=== PATIENT | male | born 1950 | race Caucasian/White ===

== ENCOUNTER 2020-05-27 08:39 | Day surgery (SDC) | payer MEDICARE, OTHER ==
--- NOTE | 2020-05-24 11:35 | HP ---
DATE OF SURGERY: 05/27/2020 HISTORY OF PRESENT ILLNESS: The patient is a 70 year old with three week history of nausea, vomiting, diarrhea, occasional epigastric pain. CT scan showed no obvious stones, did have some sludge. HIDA scan showed ejection fraction 23% consistent with biliary dyskinesia. PAST MEDICAL HISTORY: Atrial fibrillation, heart issues, hyperlipidemia, hypothyroidism. PAST SURGICAL HISTORY: Defibrillator placed 2017. Pelvic plate surgery in the past. MEDICATIONS: Entresto, carvedilol, omeprazole, Flomax, finasteride, atorvastatin, Spironolactone, Fluoxetine, Eliquis, Furosemide, L-thyroxine. ALLERGIES: NKDA. FAMILY HISTORY: Negative in regards to this problem. SOCIAL HISTORY: Occasional alcohol use, denies smoking. REVIEW OF SYSTEMS: Fourteen systems reviewed. No chest pain or palpitations. Other systems negative or noncontributory as above and per preadmission questionnaire. PHYSICAL EXAMINATION: GENERAL: No acute distress. HEENT: Sclerae nonicteric. NECK: No JVD. CHEST: Equal excursion, nonlabored breathing. CVS: Regular rate and rhythm. ABDOMEN: Soft. No peritoneal signs. EXTREMITIES: No significant edema. NEURO: Alert, oriented, moving extremities symmetrically. No gross motor deficits noted. IMPRESSION: Acute exacerbation of chronic cholecystitis, biliary sludge, dyskinesia. I feel he will benefit from cholecystectomy. He was shown the gallbladder pamphlet and risk sheet, explained the procedure in detail including but not limited to bleeding or infection, risk of trocar injury or hernia, risk of bowel, bladder or blood vessel injury, risk of bile leak, bile duct injury, retained stone or sludge possibly requiring further procedure either open or ERCP, general risk of anesthesia, deep venous thrombosis, pulmonary embolism, pneumonia, perioperative risk of aches, pains, bloating, constipation and/or loose stools possibly chronic in nature. General risk of anesthesia or sedation but not limited to, consent obtained. Will proceed with laparoscopic cholecystectomy possible open, possible need for open procedure, possibility this procedure may fail to improve his symptoms and may need further work up and/or testing, endoscopy or other studies or procedures. He is agreeable to the plan, will proceed with laparoscopic cholecystectomy possible open as an outpatient.
[~2020-05-27 08:39] MED LIST: Lactated Ringers 1,000 ML IV ONE; Lactated Ringers 1,000 ML IV SCH; MEFOXIN 2 GM PREMIX** 2 GM/50 ML ML IV SCH; Sensorcaine 0.25% 10 ML ONE
[2020-05-27] MEDS ORDERED: Lactated Ringers 1,000 ML IV ONE (08:47)
[2020-05-27] MEDS ORDERED: MEFOXIN 2 GM PREMIX** 2 GM/50 ML ML IV ONE (08:49)
[2020-05-27 11:18] LABS: ALKALINE PHOSPHATASE 111 U/L (38-126); ANION GAP 10.2 MEQ/L (5-15); BLOOD UREA NITROGEN 18 mg/dL (9-20); CHLORIDE 108 mmol/L (98-107); Calcium 9.1 mg/dL (8.4-10.2); Carbon Dioxide 25 mmol/L (22-30); Glucose 132 mg/dL (74-106); Potassium 4.2 mmol/L (3.5-5.1); SGOT/AST 23 U/L (17-59); SGPT/ALT 18 U/L (0-50); SODIUM 139 mmol/L (137-145); Total Protein 6.9 g/dL (6.3-8.2)
[2020-05-27] MEDS ORDERED: Versed 2 MG/2 ML Injection ONE (11:54)
[2020-05-27] MEDS ORDERED: SUBLIMAZE 250 MCG/5 ML ONE (11:54)
[2020-05-27] MEDS ORDERED: Amidate 20 MG/10 ML IV ONE (11:54)
[2020-05-27] MEDS ORDERED: Zemuron 100 MG/10 ML ONE (11:54)
[2020-05-27] MEDS ORDERED: Quelicin Fliptop 200 MG/10 ML ONE (12:03)
[2020-05-27] MEDS ORDERED: BRIDION 200MG/2ML IV ONE (12:22)
[2020-05-27] MEDS ORDERED: MORPHINE SULFATE 4 MG INJ IV PRN (14:19)
[2020-05-27] MEDS ORDERED: NORCO 5/325 MG PO PRN ×2 (14:20→14:30)
[2020-05-27 14:31] VITALS: O2SAT 93
[2020-05-27 14:50] VITALS: BP 130/78; PULSE 67
--- NOTE | 2020-05-28 08:59 | OP ---
SURGERY DATE/TIME: 05/27/2020 1153 PREOPERATIVE DIAGNOSIS: Acute exacerbation of chronic cholecystitis, symptomatic biliary dyskinesia. POSTOPERATIVE DIAGNOSIS: Acute exacerbation of chronic cholecystitis, symptomatic biliary dyskinesia. PROCEDURE: Laparoscopic cholecystectomy. SURGEON: Dr. Kb Miranda. ANESTHESIA: General. ESTIMATED BLOOD LOSS: Minimal. INDICATIONS: As noted above. Risks and benefits explained in detail but not limited to and consent obtained. DESCRIPTION OF PROCEDURE AND FINDINGS: The patient was taken to the operating room. General anesthesia induced. Abdomen prepped and draped in the usual sterile fashion. After official time out and no disagreement with planned procedure, a transverse incision made at the supraumbilical area. Fascia grasped and pulled upward. Veress needle inserted and tested with saline. Pneumoperitoneum accomplished insufflating opening pressure of 0-15. An 11 mm bladeless port and camera inserted without difficulty followed by two - 5 mm right upper quadrant ports and 5 mm epigastric port. He had a lot of intra-abdominal adipose tissue and a little bit of fatty infiltration of the liver but the gallbladder was able to be grasped. He had some chronic inflammatory reaction this is dissected posterior, lateral to anterior fashion. Anterior artery is carefully isolated clipped x3 and divided this opened up cystic duct and infundibular junction area could be carefully well skeletonized until the critical view was obtained both anteriorly and posteriorly. Once this was accomplished cystic duct and cystic artery clipped x3 and divided in usual fashion. The gallbladder was quite vascular but slowly and carefully dissected free from the liver bed staying directly on the gallbladder wall. Additional oozing side branch of the cystic artery were isolated directly on the gallbladder wall and clipped as necessary. Just prior to releasing from final attachments to the anterior edge of the liver, the liver bed re-inspected. Clips noted in place in cystic duct and cystic artery stumps. No signs of any active bleeding or bile leakage. It was felt there was no benefit of drain placement. Gallbladder released from final attachments to anterior edge of the liver, pulled up into the supraumbilical 10/11 port site decompressed of bile pulled free and passed off. Copious amount of irrigation accomplished lateral to the liver and subhepatic space irrigating until clear. Liver bed re-inspected. Clips noted in place cystic duct and cystic artery stumps. No signs of any active bleeding or bile leakage. It was felt there is no benefit from drain placement. At this point fascial defect closed with puncture closure device with #1 Vicryl under direct vision of the camera. Pneumoperitoneum decompressed. The wound irrigated out. Skin incision closed with 4-0 Vicryl. Steri-Strips and sterile dressing applied. 0.25% Marcaine local injected along the skin incision fascial defect. The patient tolerated the procedure well. There were no immediate complications. There was no family available to discuss the findings with here at the hospital.
== END 2020-05-27 15:05 | disposition home or self-care (01) ==
LOC: SDC 08:39
PROVIDERS: ATTEND Surgery
DX: K81.0 Acute cholecystitis (principal); K82.8 Other specified diseases of gallbladder; E78.5 Hyperlipidemia, unspecified; I48.91 Unspecified atrial fibrillation; E03.9 Hypothyroidism, unspecified; Z79.01 Long term (current) use of anticoagulants; Z79.899 Other long term (current) drug therapy
CPT/HCPCS: 36415; 80053; 88304; 99100; J0330; J0694; J2250; J2270; J3010; A9270-GY